=== PATIENT | female | born 1960 | race Caucasian/White ===

== ENCOUNTER 2016-12-22 09:00 | Outpatient (CLI) | payer OTHER | END 2016-12-22 09:01 | disposition home or self-care (01) | DX: E78.5 Hyperlipidemia, unspecified (principal); E11.9 Type 2 diabetes mellitus without complications; I10 Essential (primary) hypertension; R05 Cough; J02.9 Acute pharyngitis, unspecified ==

== ENCOUNTER 2016-12-29 08:00 | Outpatient (CLI) | payer OTHER | END 2016-12-29 08:01 | disposition home or self-care (01) | DX: C91.10 Chronic lymphocytic leukemia of B-cell type not having achieved remission (principal); Z85.038 Personal history of other malignant neoplasm of large intestine ==

== ENCOUNTER 2017-03-10 09:55 | Outpatient (CLI) | payer OTHER | END 2017-03-10 09:56 | disposition home or self-care (01) | DX: E78.5 Hyperlipidemia, unspecified (principal); E11.9 Type 2 diabetes mellitus without complications ==

== ENCOUNTER 2017-03-29 13:01 | Outpatient (CLI) | payer OTHER ==
[2017-03-29] MEDS ORDERED: GADOBUTROL 15 MMOL/15 ML VIAL IVP ONE (13:46)
--- NOTE | 2017-03-29 14:43 | MRI Preliminary Report ---
Exam: MRI Brain W/WO IMPRESSION: 1. Abnormal enhancement involving labyrinthine segment of the right cranial nerve VII. 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 2. Negative MRI of the brain. No acute abnormality. No infarct, mass, hemorrhage, or abnormal enhance ment. Critical result: Findings are discussed with referring physician, Dr. Valencia Fernandez, on 03/29/2017 at 1435 hrs. RADIA The above findings were discussed with Referring by Dr. Grzegorz العراقي at 14:42 hrs on 03/29/17. SITE ID: [id number]
--- NOTE | 2017-03-29 14:46 | MRI Report ---
EXAM: MRI BRAIN WITHOUT AND WITH CONTRAST EXAM DATE: 03/29/2017 01:53 PM. CLINICAL HISTORY: FACIAL DROOP. Right-sided facial droop since 0700 hrs. today. History of colon canc er. COMPARISON: None. TECHNIQUE: Multiplanar, multisequence T1-weighted and fluid-sensitive MR sequences of the brain were performed. Sequences optimized for routine evaluation. Other: None. Without and with IV Contrast: 12 cc Gadavist. FINDINGS: Brain Volume: Normal for age. Parenchyma/Dura: No masses, infarcts, or hemorrhage. No white matter lesions identified. No cortical signal abnormality is seen. No abnormal enhancement. Ventricles/Cisterns: Normal. No hydrocephalus. Orbits: The globes, optic nerve sheath complex, extraocular muscles, and orbital fat are unremarkable . Sella turcica: The pituitary gland, cavernous sinuses, suprasellar cistern, and optic chiasm are unre markable. IAC: Abnormal enhancement of right facial nerve is seen within the internal auditory canal . Abnormal enhancement of the labyrinthine segment is seen. Vasculature: Normal signal flow void is seen in the major arterial structures at the skull base. Basi lar artery is small in caliber. Prominent P-comm is seen bilaterally. The dural sinuses are patent an d enhance normally. Sinuses: No sinusitis evident. Partial opacification is seen involving peripheral left mastoid air ce lls. Bones: The skull is intact. Other: None. IMPRESSION: 1. Abnormal enhancement involving labyrinthine segment of the right cranial nerve VII. 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 2. Negative MRI of the brain. No acute abnormality. No infarct, mass, hemorrhage, or abnormal enhance ment. Critical result: Findings are discussed with referring physician, Dr. Valencia Fernandez, on 03/29/2017 at 1435 hrs. RADIA The above findings were discussed with DrCelia Referring by Dr. Grzegorz العراقي at 14:42 hrs on 03/29/17. Referring Provider Line: [phone] SITE ID: [id number]
== END 2017-03-29 13:02 | disposition home or self-care (01) ==
LOC: DI 13:01
PROVIDERS: ATTEND Family Medicine
DX: R90.89 Other abnormal findings on diagnostic imaging of central nervous system (principal)
CPT/HCPCS: 70553; A9585

== ENCOUNTER 2017-07-19 08:27 | Outpatient (CLI) | payer OTHER ==
[2017-07-19 12:52] LABS: BASOPHILS % (AUTO) 0.1 %; EOSINOPHILS # (AUTO) 0.1 10^3/uL (0.0-0.7); EOSINOPHILS % (AUTO) 0.8 %; HCT - HEMATOCRIT 34.5 % (37.0-47.0); HGB - HEMOGLOBIN 11.4 g/dL (12.0-16.0); LYMPHOCYTES % (AUTO) 64.6 %; MEAN CORPUSCULAR HEMOGLOBIN 27.9 pg (27.0-31.0); MEAN CORPUSCULAR VOLUME 84.7 fL (81.0-99.0); MEAN PLATELET VOLUME 9.7 fL (7.9-10.8); MONOCYTES # (AUTO) 0.7 10^3/uL (0.0-1.0); MONOCYTES % (AUTO) 3.9 %; NEUTROPHILS # (AUTO) 5.2 10^3/uL (1.5-6.6); NEUTROPHILS % (AUTO) 30.6 %; NUCLEATED RED BLOOD CELLS AUTO 0.2 /100WBC; RED BLOOD COUNT 4.08 10^6/uL (4.20-5.40); RED CELL DISTRIBUTION WIDTH 14.8 % (12.0-15.0); UNCORRECTED WHITE BLOOD COUNT 17.1 x10^3/uL; WHITE BLOOD COUNT 17.1 x10^3/uL (4.8-10.8)
[2017-07-19 13:14] LABS: ALBUMIN/GLOBULIN RATIO 1.4 (1.0-2.2); BILIRUBIN,TOTAL 0.5 mg/dL (0.2-1.0); BUN - BLOOD UREA NITROGEN 16 mg/dL (6-20); CALCIUM 8.7 mg/dL (8.5-10.3); CARBON DIOXIDE - CO2 26 mmol/L (21-32); CHLORIDE 102 mmol/L (101-111); CHOL/HDL RATIO 5.5 (<4.4); CHOLESTEROL 191 mg/dL; CREATININE 0.6 mg/dL (0.4-1.0); GFR - MDRD 103 (>89); GLUCOSE 149 mg/dL (70-100); HDL CHOLESTEROL 35 mg/dL; LDL/HDL RATIO 2.8 (<4.4); POTASSIUM 3.9 mmol/L (3.5-5.0); SODIUM 137 mmol/L (135-145); TOTAL PROTEIN 6.6 g/dL (6.7-8.2); TRIGLYCERIDES 297 mg/dL; VLDL CHOLESTEROL 59 mg/dL
[2017-07-19 13:33] LABS: HEMOGLOBIN A1C 0.67 g/dL
[2017-07-19 13:42] LABS: NP AUTO DIFFERENTIAL? NO; NP MAN DIFFERENTIAL? YES; WBC MORPHOLOGY (MULTIPLE) 2+ SMUDGE CELLS (NORMAL)
[2017-07-19 13:43] LABS: LYMPHOCYTES # (AUTO) 11.1 10^3/uL (1.5-3.5)
== END 2017-07-19 08:28 | disposition home or self-care (01) ==
LOC: LAB.WCP 08:27
PROVIDERS: ATTEND Family Medicine
DX: I10 Essential (primary) hypertension (principal); E78.5 Hyperlipidemia, unspecified; E11.9 Type 2 diabetes mellitus without complications
CPT/HCPCS: 36415; 80053; 80061; 83036; 85025

== ENCOUNTER 2017-12-21 09:00 | Outpatient (CLI) | payer OTHER ==
[2017-12-21 12:55] LABS: BASOPHILS % (AUTO) 0.2 %; EOSINOPHILS # (AUTO) 0.2 10^3/uL (0.0-0.7); EOSINOPHILS % (AUTO) 0.8 %; HGB - HEMOGLOBIN 11.8 g/dL (12.0-16.0); LYMPHOCYTES % (AUTO) 67.6 %; MEAN CORPUSCULAR HEMOGLOBIN 27.5 pg (27.0-31.0); MEAN CORPUSCULAR HGB CONC 32.6 g/dL (32.0-36.0); MEAN CORPUSCULAR VOLUME 84.2 fL (81.0-99.0); MEAN PLATELET VOLUME 9.3 fL (7.9-10.8); MONOCYTES # (AUTO) 0.8 10^3/uL (0.0-1.0); MONOCYTES % (AUTO) 3.4 %; NEUTROPHILS # (AUTO) 6.6 10^3/uL (1.5-6.6); PLT - PLATELET COUNT 224 10^3/uL (130-450); RED CELL DISTRIBUTION WIDTH 15.3 % (12.0-15.0); WHITE BLOOD COUNT 23.5 x10^3/uL (4.8-10.8)
[2017-12-21 13:11] LABS: HB2 TOTAL 12.7 g/dL; HEMOGLOBIN A1C 0.79 g/dL; HEMOGLOBIN A1C % 7.8 % (4.6-6.2)
[2017-12-21 13:34] LABS: DIFFERENTIAL COMMENT MANUAL=AUTO DIFF
[2017-12-21 13:35] LABS: LYMPHOCYTES # (AUTO) 15.9 10^3/uL (1.5-3.5)
[2017-12-21 14:57] LABS: ALBUMIN/GLOBULIN RATIO 1.5 (1.0-2.2); ALKALINE PHOSPHATASE 90 IU/L (42-121); ALT ALANINE AMINOTRANSFERASE 25 IU/L (10-60); AST ASPARTATE AMINOTRANSFERASE 23 IU/L (10-42); BILIRUBIN,TOTAL 0.5 mg/dL (0.2-1.0); BUN - BLOOD UREA NITROGEN 16 mg/dL (6-20); CALCIUM 8.7 mg/dL (8.5-10.3); CARBON DIOXIDE - CO2 25 mmol/L (21-32); CHLORIDE 98 mmol/L (101-111); CHOL/HDL RATIO 4.3 (<4.4); CHOLESTEROL 143 mg/dL; CREATININE 0.8 mg/dL (0.4-1.0); GFR - MDRD 74 (>89); GLUCOSE 212 mg/dL (70-100); HDL CHOLESTEROL 33 mg/dL; LDL CHOLESTEROL,CALCULATED 55 mg/dL; LDL/HDL RATIO 1.7 (<4.4); SODIUM 135 mmol/L (135-145); TOTAL PROTEIN 6.7 g/dL (6.7-8.2); VLDL CHOLESTEROL 55 mg/dL
== END 2017-12-21 09:01 | disposition home or self-care (01) ==
LOC: LAB.WCP 09:00
PROVIDERS: ATTEND Family Medicine
DX: Z00.00 Encounter for general adult medical examination without abnormal findings (principal); E78.5 Hyperlipidemia, unspecified; E11.9 Type 2 diabetes mellitus without complications; I10 Essential (primary) hypertension
CPT/HCPCS: 36415; 80053; 80061; 82043; 83036; 83721; 84443; 85025

== ENCOUNTER 2018-03-02 13:52 | Outpatient (CLI) | payer OTHER ==
[2018-03-02 17:48] LABS: BASOPHILS % (AUTO) 0.3 %; EOSINOPHILS % (AUTO) 0.7 %; HGB - HEMOGLOBIN 11.5 g/dL (12.0-16.0); LYMPHOCYTES % (AUTO) 70.2 %; MEAN CORPUSCULAR HEMOGLOBIN 27.2 pg (27.0-31.0); MEAN CORPUSCULAR HGB CONC 32.6 g/dL (32.0-36.0); MEAN CORPUSCULAR VOLUME 83.5 fL (81.0-99.0); MEAN PLATELET VOLUME 9.2 fL (7.9-10.8); MONOCYTES % (AUTO) 2.5 %; NEUTROPHILS % (AUTO) 26.3 %; PLT - PLATELET COUNT 211 10^3/uL (130-450); RED BLOOD COUNT 4.23 10^6/uL (4.20-5.40); RED CELL DISTRIBUTION WIDTH 15.4 % (12.0-15.0); WHITE BLOOD COUNT 19.3 x10^3/uL (4.8-10.8)
[2018-03-02 18:36] LABS: ALBUMIN 4.2 g/dL (3.2-5.5); ALBUMIN/GLOBULIN RATIO 1.6 (1.0-2.2); ALKALINE PHOSPHATASE 90 IU/L (42-121); ALT ALANINE AMINOTRANSFERASE 24 IU/L (10-60); AST ASPARTATE AMINOTRANSFERASE 20 IU/L (10-42); BILIRUBIN,TOTAL 0.8 mg/dL (0.2-1.0); BUN - BLOOD UREA NITROGEN 19 mg/dL (6-20); CALCIUM 8.7 mg/dL (8.5-10.3); CARBON DIOXIDE - CO2 28 mmol/L (21-32); CHLORIDE 96 mmol/L (101-111); CHOL/HDL RATIO 3.5 (<4.4); CHOLESTEROL 111 mg/dL; CREATININE 0.7 mg/dL (0.4-1.0); GFR - MDRD 86 (>89); GLUCOSE 95 mg/dL (70-100); HDL CHOLESTEROL 32 mg/dL; LDL CHOLESTEROL,CALCULATED 42 mg/dL; LDL/HDL RATIO 1.3 (<4.4); SODIUM 134 mmol/L (135-145); TOTAL PROTEIN 6.9 g/dL (6.7-8.2); VLDL CHOLESTEROL 37 mg/dL
[2018-03-02 18:56] LABS: ABNORMAL LYMPHS % (MANUAL) 0 %
[2018-03-02 19:38] LABS: HB2 TOTAL 12.3 g/dL; HEMOGLOBIN A1C 0.7 g/dL; HEMOGLOBIN A1C % 7.4 % (4.6-6.2)
[2018-03-02 21:12] LABS: BAND NEUTROPHILS % (MANUAL) 3 %; EOSINOPHILS # (MANUAL) 0.4 10^3/uL (0-0.7); LYMPHOCYTES # (MANUAL) 12.5 10^3/uL (1.5-3.5); LYMPHOCYTES % (MANUAL) 59 %; MONOCYTES # (MANUAL) 0.8 10^3/uL (0.0-1.0); NEUTROPHILS # (MANUAL) 5.6 10^3/uL (1.5-6.6); NEUTROPHILS % (MANUAL) 26 %
[2018-03-02 21:14] LABS: RBC MORPHOLOGY (MULTIPLE) NORMAL APPEARANCE (NORMAL)
[2018-03-02 21:15] LABS: DIFFERENTIAL COMMENT MANUAL DIFFERENTIAL; PLATELET ESTIMATE, MANUAL NORMAL (130-450,000) (NORMAL); PLATELET MORPHOLOGY NORMAL APPEARANCE (NORMAL)
== END 2018-03-02 13:53 | disposition home or self-care (01) ==
LOC: LAB.F 13:52
PROVIDERS: ATTEND Family Medicine
DX: E78.5 Hyperlipidemia, unspecified (principal); I10 Essential (primary) hypertension; E11.9 Type 2 diabetes mellitus without complications
CPT/HCPCS: 36415; 80053; 80061; 83036; 83721; 85025

== ENCOUNTER 2018-03-22 11:57 | Outpatient (CLI) | payer OTHER | END 2018-03-22 11:58 | disposition critical access hospital (66) | LOC: EMS 11:57 | PROVIDERS: ATTEND Surgery | DX: M79.661 Pain in right lower leg (principal); X50.9XXA Other and unspecified overexertion or strenuous movements or postures, initial encounter; Y93.01 Activity, walking, marching and hiking; Y92.512 Supermarket, store or market as the place of occurrence of the external cause | CPT/HCPCS: A0425; A0429 ==

== ENCOUNTER 2018-03-22 12:16 | Emergency (ER) | payer OTHER ==
[2018-03-22 12:24] VITALS: BP 156/81
--- NOTE | 2018-03-22 13:05 | XRAY Report ---
EXAM: RIGHT ANKLE RADIOGRAPHY EXAM DATE: 03/22/2018 12:45 PM. CLINICAL HISTORY: Twisted rt ankle, c/o ankle pain. COMPARISON: None. TECHNIQUE: 3 views. FINDINGS: Bones: Irregular linear lucency extending to the inferior aspect of the lateral malleolus. Joints: Small joint effusion at the ankle. Soft Tissues: Soft tissue swelling along the lateral aspect of the ankle. IMPRESSION: Minimally displaced fracture at the tip of the lateral malleolus with adjacent soft tissu e swelling and small joint effusion at the ankle. RADIA Referring Provider Line: [phone] SITE ID: [id number]
--- NOTE | 2018-03-22 13:05 | XRAY Preliminary Report ---
Exam: XR ANKLE 3 VIEW RT IMPRESSION: Minimally displaced fracture at the tip of the lateral malleolus with adjacent soft tissu e swelling and small joint effusion at the ankle. RADIA SITE ID: [id number]
--- NOTE | 2018-03-22 13:20 | ED Physician Documentation ---
PD HPI LOWER EXT INJURY - Stated complaint Stated Complaint: GLF - Chief complaint Chief Complaint: Ext Problem - History obtained from History obtained from: Patient - History of Present Illness PD HPI LOW EXT INJURY LOCATION: Right, Ankle Type of injury: Twist Where injury occurred: Other (parking lot) Timing - onset: Today Worsened by: Other (Weightbearing) Associated symptoms: Swelling. No: Weakness, Numbness - Additional information Additional information: The patient is a 57-year-old female who stepped into a pothole in the parking lot, twisting her right ankle. She fell, skinning her left knee on the pavement. She has been unable to bear weight on her right foot since the incident occurred just prior to arrival. She denies any other injuries. Her tetanus status is up-to-date. Review of Systems Skin: reports: Abrasion (s) (Left knee.) Musculoskeletal: reports: Joint pain (Right ankle.). 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, Breast reduction - Present Medications Home Medications: Ambulatory Orders Medication Instructions Recorded Confirmed Budesonide/Formoterol Fumarate 2 inh INH BID 05/12/16 05/12/16 [Symbicort 160-4.5 Mcg Inhaler] Cholecalciferol (Vitamin D3) 1,000 unit PO DAILY 05/12/16 05/12/16 [Vitamin D3] Cyclobenzaprine [Flexeril] 10 mg PO TID PRN 05/12/16 05/12/16 Fluoxetine HCl [Prozac] 60 mg PO DAILY 05/12/16 05/12/16 Fluticasone [Flonase] 1 sprays CJ BID 05/12/16 05/12/16 Guanfacine HCl 2 mg PO DAILY 05/12/16 05/12/16 Insulin Aspart [Novolog] 22 unit SQ TIDWM 05/12/16 05/12/16 Insulin Detemir [Levemir Flextouch] 55 unit SQ QPM 05/12/16 05/12/16 Ipratropium/Albuterol Sulfate 4 gm IH QID PRN 05/12/16 05/12/16 [Combivent Respimat Inhal [place]] Metformin HCl 500 mg PO BIDWM 05/12/16 05/12/16 Methylphenidate HCl [Concerta] 18 mg PO DAILY 05/12/16 05/12/16 Nystatin Cream [Mycostatin Cream] 15 gm TOP BID PRN 05/12/16 05/12/16 Simvastatin 20 mg PO QPM 05/12/16 05/12/16 hydroCHLOROthiazide [Hydrodiuril] 25 mg PO DAILY 05/12/16 05/12/16 HYDROcod/ACETAM 5/325 [[place] 5/325] 1 - 2 ea PO Q6H PRN #20 tablet 03/22/18 - Allergies Allergies/Adverse Reactions: Allergies Allergy/AdvReac Type Severity Reaction Status Date / Time No Known Drug Allergies Allergy Verified 03/22/18 12:24 - Social History Smoking Status: Former smoker PD ED PE NORMAL - Vitals Vital signs reviewed: Yes (Initially hypertensive.) - General General: Alert and oriented X 3, Well developed/nourished, Other (Overweight.) - HEENT HEENT: Atraumatic - Neck Neck: No bony TTP - Respiratory Respiratory: No respiratory distress - Back Back: No spinal TTP - Derm Derm: No rash - Extremities Extremities: No calf tenderness / cord, Other (There is tenderness to palpation over the lateral malleolus of the right ankle. No tenderness at the fifth metatarsal base, the medial malleolus, or the proximal fibula. There is superficial abrasion at the infrapatellar aspect of the left knee. She has full range of motion of the knee, without tenderness. Distal neurovascular is intact.) - Neuro Neuro: Alert and oriented X 3, No motor deficit, No sensory deficit Results - Vitals Vitals: Oxygen O2 Source Room air - Rads (name of study) right ankle Radiology: Prelim report reviewed, EMP read contemporaneously, See rad report ( Minimally displaced fracture at the tip of the lateral malleolus with adjacent soft tissue swelling and small joint effusion at the ankle.) Procedures - Splint (location) right ankle Splint applied by: Tech Type of splint: Other (Walking cast boot.) Other: Patient tolerated well, No complications, Crutches provided PD MEDICAL DECISION MAKING - ED course Complexity details: reviewed results, re-evaluated patient, considered differential, d/w patient, d/w family ED course: The patient's presentation is significant for a minimally displaced chip fracture at the tip of the right lateral malleolus. Treatment in the emergency department included administration of a walking cast boot. Crutches were dispensed. Ibuprofen 800 mg is administered orally. In addition, the abrasion of the left knee was cleaned, and antibiotic ointment and wound dressing applied. Imaging study of the left knee was not clinically indicated. I discussed with the patient and her the expected course of injury, symptomatic treatment and outpatient follow-up, as well as potentially worrisome signs or symptoms that should prompt reevaluation in the emergency department. Departure - Departure Disposition: 01 Home, Self Care Clinical Impression: Fracture of fibula, distal, closed Qualifiers: Encounter type: initial encounter Fracture morphology: other fracture Laterality: right Qualified Code(s): S82.831A - Other fracture of upper and lower end of right fibula, initial encounter for closed fracture Condition: Stable Instructions: ED Fx Ankle Lateral Malleolus, ED Boot Aircast Walker Follow-Up: Valencia Frenandez MD [Primary Care Provider] - Prescriptions: HYDROcod/ACETAM 5/325 [[place] 5/325] 1 - 2 ea PO Q6H PRN #20 tablet PRN Reason: Pain Comments: Keep your right leg elevated as much of the time as possible. Apply ice pack to your ankle intermittently for the next 3 or 4 days. Use the walking boot for stability when walking. You can use ibuprofen, up to 800 mg 3 times daily for its anti-inflammatory effect. You can use Vicodin as prescribed if needed for pain. Follow up with your primary physician within 1-2 weeks. Call to schedule appointment. Return to the emergency department if you develop markedly increasing pain or swelling, or otherwise worsening symptoms. Forms: Activity restrictions Discharge Date/Time: 03/22/18 14:14
[2018-03-22] MEDS ORDERED: IBUPROFEN 800 MG TABLET PO STA (13:21)
[2018-03-22] MEDS ORDERED: BACITRACIN OINT TOP STA (13:37)
== END 2018-03-22 14:14 | disposition home or self-care (01) ==
LOC: EDUNIT# → ED 12:16
DX: S82.64XA Nondisplaced fracture of lateral malleolus of right fibula, initial encounter for closed fracture (principal); S80.212A Abrasion, left knee, initial encounter; I10 Essential (primary) hypertension; E11.9 Type 2 diabetes mellitus without complications; Z79.4 Long term (current) use of insulin; Z87.891 Personal history of nicotine dependence; W01.0XXA Fall on same level from slipping, tripping and stumbling without subsequent striking against object, initial encounter; Y92.481 Parking lot as the place of occurrence of the external cause; X50.1XXA Overexertion from prolonged static or awkward postures, initial encounter
CPT/HCPCS: 73610; 99283; A9270

== ENCOUNTER 2018-05-08 11:05 | Outpatient (CLI) | payer OTHER ==
--- NOTE | 2018-05-08 13:04 | Ultrasound Report ---
Procedure Date: 05/08/2018 Accession Number: [id number] / [id number] Procedure: US - Ext Limited Non Vascular CPT Code: FULL RESULT: EXAM: Ext Limited Non Vascular DATE: 05/08/2018 11:54 AM CLINICAL HISTORY: LOCAL MASS TO UPPER R ARM TECHNIQUE: Real-time scanning of the palpable abnormality identified by the patient, with claim service representative static images obtained. COMPARISON: None FINDINGS: At the site of the palpable abnormality, there is a 4.0 x 2.9 x 1.5 cm lipoma. Additional, smaller lipomas are noted in the surrounding fat, measuring up to 8 mm in diameter. No sonographically suspicious lesion is identified. 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
== END 2018-05-08 11:06 | disposition home or self-care (01) ==
LOC: DI 11:05
PROVIDERS: ATTEND Family Medicine
DX: D17.21 Benign lipomatous neoplasm of skin and subcutaneous tissue of right arm (principal)
CPT/HCPCS: 76882

== ENCOUNTER 2018-07-23 09:00 | Outpatient (CLI) | payer OTHER ==
[2018-07-23 13:01] LABS: BASOPHILS # (AUTO) 0.1 10^3/uL (0.0-0.1); BASOPHILS % (AUTO) 0.3 %; EOSINOPHILS # (AUTO) 0.2 10^3/uL (0.0-0.7); EOSINOPHILS % (AUTO) 0.8 %; HGB - HEMOGLOBIN 12.2 g/dL (12.0-16.0); LYMPHOCYTES # (AUTO) 15.4 10^3/uL (1.5-3.5); LYMPHOCYTES % (AUTO) 68.5 %; MEAN CORPUSCULAR HEMOGLOBIN 28.1 pg (27.0-31.0); MEAN CORPUSCULAR HGB CONC 33.2 g/dL (32.0-36.0); MEAN CORPUSCULAR VOLUME 84.6 fL (81.0-99.0); MEAN PLATELET VOLUME 9.8 fL (7.9-10.8); MONOCYTES # (AUTO) 0.6 10^3/uL (0.0-1.0); MONOCYTES % (AUTO) 2.7 %; NEUTROPHILS # (AUTO) 6.2 10^3/uL (1.5-6.6); NEUTROPHILS % (AUTO) 27.7 %; PLT - PLATELET COUNT 205 10^3/uL (130-450); RED BLOOD COUNT 4.35 10^6/uL (4.20-5.40); RED CELL DISTRIBUTION WIDTH 15.1 % (12.0-15.0); WHITE BLOOD COUNT 22.4 x10^3/uL (4.8-10.8)
[2018-07-23 13:26] LABS: ALBUMIN 4.1 g/dL (3.2-5.5); ALBUMIN/GLOBULIN RATIO 1.5 (1.0-2.2); ALKALINE PHOSPHATASE 90 IU/L (42-121); ALT ALANINE AMINOTRANSFERASE 26 IU/L (10-60); AST ASPARTATE AMINOTRANSFERASE 24 IU/L (10-42); BILIRUBIN,TOTAL 0.7 mg/dL (0.2-1.0); BUN - BLOOD UREA NITROGEN 17 mg/dL (6-20); CALCIUM 9.1 mg/dL (8.5-10.3); CARBON DIOXIDE - CO2 28 mmol/L (21-32); CHLORIDE 101 mmol/L (101-111); CHOL/HDL RATIO 3.3 (<4.4); CHOLESTEROL 130 mg/dL; CREATININE 0.7 mg/dL (0.4-1.0); GFR - MDRD 86 (>89); GLUCOSE 198 mg/dL (70-100); HDL CHOLESTEROL 39 mg/dL; LDL CHOLESTEROL,CALCULATED 54 mg/dL; LDL/HDL RATIO 1.4 (<4.4); SODIUM 137 mmol/L (135-145); TOTAL PROTEIN 6.8 g/dL (6.7-8.2); VLDL CHOLESTEROL 37 mg/dL
[2018-07-23 13:33] LABS: DIFFERENTIAL COMMENT MANUAL=AUTO DIFF
[2018-07-23 13:35] LABS: HB2 TOTAL 12.6 g/dL; HEMOGLOBIN A1C 0.84 g/dL; HEMOGLOBIN A1C % 8.3 % (4.6-6.2)
== END 2018-07-23 09:01 | disposition home or self-care (01) ==
LOC: LAB.WCP 09:00
PROVIDERS: ATTEND Internal Medicine Hematology & Oncology
DX: C91.10 Chronic lymphocytic leukemia of B-cell type not having achieved remission (principal); E78.5 Hyperlipidemia, unspecified; I10 Essential (primary) hypertension; E11.9 Type 2 diabetes mellitus without complications
CPT/HCPCS: 36415; 80053; 80061; 82784; 83036; 83615; 83721; 85025

== ENCOUNTER 2018-08-21 10:41 | Outpatient (CLI) | payer OTHER | END 2018-08-21 10:42 | disposition home or self-care (01) | LOC: SC 10:41 | PROVIDERS: ATTEND Internal Medicine Pulmonary Disease | DX: G47.33 Obstructive sleep apnea (adult) (pediatric) (principal) | CPT/HCPCS: 99203; 99212 ==

== ENCOUNTER 2018-11-18 15:15 | Outpatient (CLI) | payer OTHER | END 2018-11-18 15:16 | disposition EMS.NT | LOC: EMS 15:15 | PROVIDERS: ATTEND Surgery | DX: R41.0 Disorientation, unspecified (principal) ==

== ENCOUNTER 2018-11-27 08:00 | Outpatient (CLI) | payer OTHER ==
[2018-11-27 20:02] LABS: ALBUMIN 3.9 g/dL (3.2-5.5); ALBUMIN/GLOBULIN RATIO 1.3 (1.0-2.2); BILIRUBIN,TOTAL 0.7 mg/dL (0.2-1.0); CREATININE 0.7 mg/dL (0.4-1.0); TOTAL PROTEIN 6.9 g/dL (6.7-8.2)
[2018-11-27 20:30] LABS: HB2 TOTAL 11.7 g/dL; HEMOGLOBIN A1C 0.73 g/dL; HEMOGLOBIN A1C % 7.9 % (4.6-6.2)
== END 2018-11-27 23:59 | disposition home or self-care (01) ==
LOC: LAB.WCP 08:00
PROVIDERS: ATTEND Family Medicine
DX: E11.9 Type 2 diabetes mellitus without complications (principal); I10 Essential (primary) hypertension
CPT/HCPCS: 36415; 80053; 82043; 83036

== ENCOUNTER 2020-06-08 08:00 | Outpatient (CLI) | payer OTHER ==
[2020-06-08 12:16] LABS: BASOPHILS # (AUTO) 0.1 10^3/uL (0.0-0.1); BASOPHILS % (AUTO) 0.3 %; EOSINOPHILS # (AUTO) 0.2 10^3/uL (0.0-0.7); EOSINOPHILS % (AUTO) 0.5 %; HGB - HEMOGLOBIN 12.8 g/dL (12.0-16.0); LYMPHOCYTES # (AUTO) 21.9 10^3/uL (1.5-3.5); LYMPHOCYTES % (AUTO) 78.8 %; MEAN CORPUSCULAR HEMOGLOBIN 28.2 pg (27.0-31.0); MEAN CORPUSCULAR HGB CONC 32.3 g/dL (32.0-36.0); MEAN CORPUSCULAR VOLUME 87.2 fL (81.0-99.0); MEAN PLATELET VOLUME 11.8 fL (7.9-10.8); MONOCYTES # (AUTO) 1.2 10^3/uL (0.0-1.0); MONOCYTES % (AUTO) 4.4 %; NEUTROPHILS # (AUTO) 4.4 10^3/uL (1.5-6.6); NEUTROPHILS % (AUTO) 15.6 %; PLT - PLATELET COUNT 213 10^3/uL (130-450); RED BLOOD COUNT 4.54 10^6/uL (4.20-5.40); RED CELL DISTRIBUTION WIDTH 14.3 % (12.0-15.0); WHITE BLOOD COUNT 27.8 x10^3/uL (4.8-10.8)
[2020-06-08 13:07] LABS: ALBUMIN/GLOBULIN RATIO 1.4 (1.0-2.2); ALKALINE PHOSPHATASE 120 IU/L (42-121); ALT ALANINE AMINOTRANSFERASE 20 IU/L (10-60); AST ASPARTATE AMINOTRANSFERASE 13 IU/L (10-42); BILIRUBIN,TOTAL 0.7 mg/dL (0.2-1.0); BUN - BLOOD UREA NITROGEN 13 mg/dL (6-20); CARBON DIOXIDE - CO2 29 mmol/L (21-32); CHLORIDE 97 mmol/L (101-111); CHOL/HDL RATIO 6.2 (<4.4); CHOLESTEROL 168 mg/dL; CREATININE 0.7 mg/dL (0.4-1.0); GLUCOSE 419 mg/dL (70-100); HDL CHOLESTEROL 27 mg/dL; SODIUM 134 mmol/L (135-145); TOTAL PROTEIN 6.8 g/dL (6.7-8.2)
[2020-06-08 13:28] LABS: LDL CHOLESTEROL,DIRECT 44 mg/dL; LDLD/HDL RATIO 1.6 (<4.4)
[2020-06-08 14:57] LABS: HB2 TOTAL 13.7 g/dL; HEMOGLOBIN A1C 1.7 g/dL; HEMOGLOBIN A1C % 13.5 % (4.6-6.2)
== END 2020-06-08 23:59 | disposition home or self-care (01) ==
LOC: LAB.WCP 08:00
PROVIDERS: ATTEND Physician Assistant
DX: E11.9 Type 2 diabetes mellitus without complications (principal); E78.5 Hyperlipidemia, unspecified
CPT/HCPCS: 36415; 80053; 80061; 83036; 83721; 85025

== ENCOUNTER 2020-08-08 07:00 | Outpatient (CLI) | payer OTHER | END 2020-08-08 23:59 | disposition home or self-care (01) | LOC: LAB.R 07:00 | PROVIDERS: ATTEND Emergency Medicine | DX: L03.012 Cellulitis of left finger (principal) | CPT/HCPCS: 87070; 87181; 87205 ==

== ENCOUNTER 2020-10-01 18:26 | Outpatient (CLI) | payer OTHER | END 2020-10-01 18:27 | disposition EMS.NT | LOC: EMS 18:26 | PROVIDERS: ATTEND Surgery | DX: T22.041A Burn of unspecified degree of right axilla, initial encounter (principal); X06.2XXA Exposure to ignition of other clothing and apparel, initial encounter; Y93.G3 Activity, cooking and baking; Y92.000 Kitchen of unspecified non-institutional (private) residence as the place of occurrence of the external cause ==

== ENCOUNTER 2021-02-26 08:00 | Outpatient (CLI) | payer OTHER | END 2021-02-26 23:59 | disposition home or self-care (01) | LOC: LAB.R 08:00 | PROVIDERS: ATTEND Nurse Practitioner | DX: L02.91 Cutaneous abscess, unspecified (principal) | CPT/HCPCS: 87070; 87077; 87205 ==

== ENCOUNTER 2021-07-04 09:35 | Outpatient (CLI) | payer OTHER ==
[2021-07-04 09:56] LABS: BASOPHILS % (AUTO) 0.3 %; EOSINOPHILS % (AUTO) 0.5 %; HCT - HEMATOCRIT 39.6 % (37.0-47.0); HGB - HEMOGLOBIN 12.7 g/dL (12.0-16.0); LYMPHOCYTES % (AUTO) 80.9 %; MEAN CORPUSCULAR HEMOGLOBIN 28.1 pg (27.0-31.0); MEAN CORPUSCULAR HGB CONC 32.1 g/dL (32.0-36.0); MEAN CORPUSCULAR VOLUME 87.6 fL (81.0-99.0); NEUTROPHILS % (AUTO) 15.9 %; PLT - PLATELET COUNT 201 10^3/uL (130-450); RED BLOOD COUNT 4.52 10^6/uL (4.20-5.40); RED CELL DISTRIBUTION WIDTH 13.7 % (12.0-15.0); WHITE BLOOD COUNT 29.1 x10^3/uL (4.8-10.8)
[2021-07-04 10:07] LABS: CREATININE,URINE 95.9 mg/dL; MICROALBUM/CREATININE RATIO,UR 10.4 ug/mg (<30.0)
[2021-07-04 10:13] LABS: ABNORMAL LYMPHS % (MANUAL) 0 %; BAND NEUTROPHILS % (MANUAL) 0 %
[2021-07-04 10:15] LABS: ALBUMIN 4.2 g/dL (3.2-5.5); ALBUMIN/GLOBULIN RATIO 1.4 (1.0-2.2); ALKALINE PHOSPHATASE 112 IU/L (42-121); ALT ALANINE AMINOTRANSFERASE 22 IU/L (10-60); AST ASPARTATE AMINOTRANSFERASE 15 IU/L (10-42); BILIRUBIN,TOTAL 0.9 mg/dL (0.2-1.0); BUN - BLOOD UREA NITROGEN 14 mg/dL (6-20); CALCIUM 9.1 mg/dL (8.5-10.3); CARBON DIOXIDE - CO2 27 mmol/L (21-32); CHLORIDE 99 mmol/L (101-111); CHOL/HDL RATIO 6.8 (<4.4); CHOLESTEROL 238 mg/dL; CREATININE 0.6 mg/dL (0.4-1.0); GFR - MDRD 101 (>89); GLUCOSE 354 mg/dL (70-100); HDL CHOLESTEROL 35 mg/dL; POTASSIUM 4.4 mmol/L (3.5-5.0); SODIUM 136 mmol/L (135-145); TOTAL PROTEIN 7.1 g/dL (6.7-8.2); TRIGLYCERIDES 737 mg/dL
[2021-07-04 10:22] LABS: EOSINOPHILS # (MANUAL) 0.3 10^3/uL (0-0.7); LYMPHOCYTES # (MANUAL) 22.1 10^3/uL (1.5-3.5); LYMPHOCYTES % (MANUAL) 76 %; MONOCYTES # (MANUAL) 1.2 10^3/uL (0.0-1.0); NEUTROPHILS # (MANUAL) 5.5 10^3/uL (1.5-6.6); PLATELET ESTIMATE, MANUAL NORMAL (130-450,000) (NORMAL); PLATELET MORPHOLOGY NORMAL APPEARANCE (NORMAL); RBC MORPHOLOGY (MULTIPLE) NORMAL APPEARANCE (NORMAL)
[2021-07-04 10:23] LABS: DIFFERENTIAL COMMENT MANUAL DIFFERENTIAL; SLIDE SENT FOR PATH REVIEW? Indicated; WBC MORPHOLOGY (MULTIPLE) 3+ SMUDGE CELLS (NORMAL)
[2021-07-04 10:26] LABS: THYROID STIMULATING HORMONE 7.24 uIU/mL (0.34-5.60)
[2021-07-04 11:00] LABS: LDL CHOLESTEROL,DIRECT 55 mg/dL; LDLD/HDL RATIO 1.6 (<4.4)
[2021-07-04 11:04] LABS: FREE T4 (FREE THYROXINE) 1.05 ng/dL (0.58-1.64)
[2021-07-04 11:15] LABS: ESTIMATED AVERAGE GLUCOSE 289 mg/dL (70-100); HEMOGLOBIN A1c% 11.7 % (4.27-6.07)
[2021-07-07 15:08] LABS: PATHOLOGIST SLIDE COMMENTS SEE SEPARATE REPORT
== END 2021-07-04 09:36 | disposition home or self-care (01) ==
LOC: LAB 09:35
PROVIDERS: ATTEND Internal Medicine
DX: I10 Essential (primary) hypertension (principal); R16.1 Splenomegaly, not elsewhere classified; R42 Dizziness and giddiness; E11.9 Type 2 diabetes mellitus without complications; E78.5 Hyperlipidemia, unspecified; F32.9 Major depressive disorder, single episode, unspecified
CPT/HCPCS: 36415; 80053; 80061; 82043; 82570; 83036; 83721; 84439; 84443; 85025

== ENCOUNTER 2021-08-16 16:18 | Outpatient (CLI) | payer OTHER | END 2021-08-16 16:19 | disposition home or self-care (01) | LOC: COV 16:18 | PROVIDERS: ATTEND Family Medicine | DX: Z20.822 Contact with and (suspected) exposure to COVID-19 (principal) ==

== ENCOUNTER 2021-11-20 10:21 | Outpatient (CLI) | payer OTHER ==
[2021-11-20 10:50] LABS: CREATININE,URINE 93.4 mg/dL; MICROALBUM/CREATININE RATIO,UR 23.6 ug/mg (<30.0); MICROALBUMIN,URINE 2.2 mg/dL (0-300.0)
[2021-11-20 11:18] LABS: THYROID STIMULATING HORMONE 5.22 uIU/mL (0.34-5.60)
[2021-11-20 11:19] LABS: BUN - BLOOD UREA NITROGEN 12 mg/dL (6-20); CALCIUM 9.2 mg/dL (8.5-10.3); CARBON DIOXIDE - CO2 25 mmol/L (21-32); CHLORIDE 100 mmol/L (101-111); CHOL/HDL RATIO 5.4 (<4.4); CHOLESTEROL 207 mg/dL; CREATININE 0.7 mg/dL (0.4-1.0); GFR - MDRD 85 (>89); GLUCOSE 242 mg/dL (70-100); HDL CHOLESTEROL 38 mg/dL; LDL CHOLESTEROL,CALCULATED 109 mg/dL; LDL/HDL RATIO 2.9 (<4.4); POTASSIUM 4.2 mmol/L (3.5-5.0); SODIUM 136 mmol/L (135-145); TRIGLYCERIDES 299 mg/dL; VLDL CHOLESTEROL 60 mg/dL
[2021-11-20 11:20] LABS: FREE T4 (FREE THYROXINE) 0.98 ng/dL (0.58-1.64)
[2021-11-20 20:58] LABS: ESTIMATED AVERAGE GLUCOSE 283 mg/dL (70-100); HEMOGLOBIN A1c% 11.5 % (4.27-6.07)
== END 2021-11-20 10:22 | disposition home or self-care (01) ==
LOC: LAB 10:21
PROVIDERS: ATTEND Internal Medicine
DX: R94.6 Abnormal results of thyroid function studies (principal); E11.42 Type 2 diabetes mellitus with diabetic polyneuropathy
CPT/HCPCS: 36415; 80048; 80061; 82043; 82570; 83036; 83721; 84439; 84443

== ENCOUNTER 2021-11-24 16:30 | Outpatient (CLI) | payer OTHER ==
--- NOTE | 2021-12-03 14:02 | XRAY Report ---
PROCEDURE: Chest 2 View X-Ray INDICATIONS: COVID-19 CORONAVIRUS PNEUMONIA TECHNIQUE: 2 view(s) of the chest. COMPARISON: Plain films dated 05/22/2018. FINDINGS: Surgical changes and devices: None. Lungs and pleura: No pleural effusions or pneumothorax. Mild diffuse reticulonodular pulmonary opaci ty. Mediastinum: Mediastinal contours are normal. Heart size is normal. Bones and chest wall: No suspicious bony abnormalities. Soft tissues appear unremarkable. IMPRESSION: Mild atypical pneumonia. Reviewed by: Quan Beach MD on 11/24/2021 4:59 PM PST Approved by: Quan Beach MD on 11/24/2021 4:59 PM PST Station ID: [id number]
== END 2021-11-24 16:31 | disposition home or self-care (01) ==
LOC: DI 16:30
PROVIDERS: ATTEND Internal Medicine
DX: U07.1 COVID-19 (principal); J12.82 Pneumonia due to coronavirus disease 2019

== ENCOUNTER 2021-12-31 16:40 | Outpatient (CLI) | payer OTHER ==
--- NOTE | 2021-12-31 17:26 | XRAY Report ---
PROCEDURE: Foot 3 View RT INDICATIONS: RIGHT FOOT PAIN TECHNIQUE: 3 views of the foot were acquired. COMPARISON: None FINDINGS: Bones: No fractures or dislocations. No suspicious bony lesions. Plantar calcaneal bone spur. Soft tissues: No tibiotalar joint effusion. Achilles tendon appears normal. IMPRESSION: Calcaneal bone spur. Reviewed by: Yessy Diaz MD, PhD on 12/31/2021 5:25 PM PST Approved by: Yessy Diaz MD, PhD on 12/31/2021 5:25 PM PST Station ID: [id number]
== END 2021-12-31 16:41 | disposition home or self-care (01) ==
LOC: DI 16:40
PROVIDERS: ATTEND Internal Medicine
DX: M77.31 Calcaneal spur, right foot (principal)

== ENCOUNTER 2022-05-31 09:00 | Outpatient (CLI) | payer OTHER ==
[2022-05-31 09:40] LABS: BUN - BLOOD UREA NITROGEN 10 mg/dL (6-20); CALCIUM 9.3 mg/dL (8.5-10.3); CARBON DIOXIDE - CO2 25 mmol/L (21-32); CHLORIDE 101 mmol/L (101-111); CHOL/HDL RATIO 3.7 (<4.4); CHOLESTEROL 125 mg/dL; CREATININE 0.6 mg/dL (0.4-1.0); GFR - MDRD 101 (>89); GLUCOSE 252 mg/dL (70-100); HDL CHOLESTEROL 34 mg/dL; LDL CHOLESTEROL,CALCULATED 45 mg/dL; LDL/HDL RATIO 1.3 (<4.4); POTASSIUM 4.5 mmol/L (3.5-5.0); SODIUM 136 mmol/L (135-145); TRIGLYCERIDES 228 mg/dL; VLDL CHOLESTEROL 46 mg/dL
[2022-05-31 09:50] LABS: THYROID STIMULATING HORMONE 7.31 uIU/mL (0.34-5.60)
[2022-05-31 10:55] LABS: FREE T4 (FREE THYROXINE) 0.85 ng/dL (0.58-1.64)
[2022-05-31 12:27] LABS: ESTIMATED AVERAGE GLUCOSE 306 mg/dL (70-100); HEMOGLOBIN A1c% 12.3 % (4.27-6.07)
== END 2022-05-31 09:01 | disposition home or self-care (01) ==
LOC: LAB 09:00
PROVIDERS: ATTEND Internal Medicine
DX: E11.42 Type 2 diabetes mellitus with diabetic polyneuropathy (principal); E78.5 Hyperlipidemia, unspecified; R94.6 Abnormal results of thyroid function studies
CPT/HCPCS: 36415; 80048; 80061; 83036; 83721; 84439; 84443

== ENCOUNTER 2022-10-03 09:07 | Outpatient (CLI) | payer OTHER ==
[2022-10-03 09:30] LABS: BASOPHILS % (AUTO) 0.3 %; EOSINOPHILS % (AUTO) 0.5 %; HCT - HEMATOCRIT 39.4 % (37.0-47.0); HGB - HEMOGLOBIN 12.9 g/dL (12.0-16.0); LYMPHOCYTES % (AUTO) 81.5 %; MEAN CORPUSCULAR HEMOGLOBIN 28.4 pg (27.0-31.0); MEAN CORPUSCULAR HGB CONC 32.7 g/dL (32.0-36.0); MEAN CORPUSCULAR VOLUME 86.8 fL (81.0-99.0); MONOCYTES % (AUTO) 2.7 %; NEUTROPHILS % (AUTO) 14.8 %; PLT - PLATELET COUNT 227 10^3/uL (130-450); RED BLOOD COUNT 4.54 10^6/uL (4.20-5.40); RED CELL DISTRIBUTION WIDTH 13.7 % (12.0-15.0); WHITE BLOOD COUNT 27.5 x10^3/uL (4.8-10.8)
[2022-10-03 09:33] LABS: ABNORMAL LYMPHS % (MANUAL) 0 %; BAND NEUTROPHILS % (MANUAL) 0 %
[2022-10-03 10:06] LABS: CREATININE,URINE 50.7 mg/dL; MICROALBUM/CREATININE RATIO,UR 5.9 ug/mg (<30.0); MICROALBUMIN,URINE 0.3 mg/dL (0-300.0)
[2022-10-03 10:07] LABS: EOSINOPHILS # (MANUAL) 0.3 10^3/uL (0-0.7); LYMPHOCYTES # (MANUAL) 17.1 10^3/uL (1.5-3.5); LYMPHOCYTES % (MANUAL) 62 %; MONOCYTES # (MANUAL) 1.9 10^3/uL (0.0-1.0); NEUTROPHILS # (MANUAL) 7.7 10^3/uL (1.5-6.6); PLASMA CELLS % (MANUAL) 2 %
[2022-10-03 10:08] LABS: PLATELET ESTIMATE, MANUAL NORMAL (130-450,000) (NORMAL); PLATELET MORPHOLOGY NORMAL APPEARANCE (NORMAL); RBC MORPHOLOGY (MULTIPLE) NORMAL APPEARANCE (NORMAL); THYROID STIMULATING HORMONE 8.64 uIU/mL (0.34-5.60)
[2022-10-03 10:09] LABS: WBC MORPHOLOGY (MULTIPLE) 4+ SMUDGE CELLS (NORMAL)
[2022-10-03 10:10] LABS: DIFFERENTIAL COMMENT MANUAL DIFFERENTIAL
[2022-10-03 10:41] LABS: ALBUMIN 3.6 g/dL (3.2-5.5); ALBUMIN/GLOBULIN RATIO 1.2 (1.0-2.2); ALKALINE PHOSPHATASE 108 IU/L (42-121); ALT ALANINE AMINOTRANSFERASE 24 IU/L (10-60); AST ASPARTATE AMINOTRANSFERASE 20 IU/L (10-42); BILIRUBIN,TOTAL 0.4 mg/dL (0.2-1.0); BUN - BLOOD UREA NITROGEN 16 mg/dL (6-20); CALCIUM 9.1 mg/dL (8.5-10.3); CARBON DIOXIDE - CO2 26 mmol/L (21-32); CHLORIDE 96 mmol/L (101-111); CHOL/HDL RATIO 8.7 (<4.4); CHOLESTEROL 297 mg/dL; CREATININE 0.7 mg/dL (0.4-1.0); GFR - MDRD 85 (>89); GLUCOSE 293 mg/dL (70-100); HDL CHOLESTEROL 34 mg/dL; POTASSIUM 4.4 mmol/L (3.5-5.0); SODIUM 132 mmol/L (135-145); TOTAL PROTEIN 6.5 g/dL (6.7-8.2); TRIGLYCERIDES 1192 mg/dL
[2022-10-03 11:03] LABS: FREE T4 (FREE THYROXINE) 0.85 ng/dL (0.58-1.64)
[2022-10-03 11:08] LABS: LDL CHOLESTEROL,DIRECT 64 mg/dL; LDLD/HDL RATIO 1.9 (<4.4)
[2022-10-03 11:30] LABS: ESTIMATED AVERAGE GLUCOSE 309 mg/dL (70-100); HEMOGLOBIN A1c% 12.4 % (4.27-6.07)
== END 2022-10-03 09:08 | disposition home or self-care (01) ==
LOC: LAB 09:07
PROVIDERS: ATTEND Internal Medicine
DX: C19 Malignant neoplasm of rectosigmoid junction (principal); E11.42 Type 2 diabetes mellitus with diabetic polyneuropathy; R94.6 Abnormal results of thyroid function studies
CPT/HCPCS: 36415; 80053; 80061; 82043; 82570; 83036; 83721; 84439; 84443; 85025

== ENCOUNTER 2022-10-06 14:20 | Outpatient (CLI) | payer OTHER ==
--- NOTE | 2022-10-06 15:43 | XRAY Report ---
PROCEDURE: Chest 2 View X-Ray INDICATIONS: ACUTE BRONCHITIS TECHNIQUE: 2 views of the chest were acquired. COMPARISON: 11/24/2021 FINDINGS: Surgical changes and devices: None. Lungs and pleura: No pleural effusions or pneumothorax. Lungs are clear. Mediastinum: Mediastinal contours are normal. Heart size is normal. Bones and chest wall: No suspicious bony abnormalities. Soft tissues appear unremarkable. IMPRESSION: No acute cardiopulmonary process demonstrated radiographically. Reviewed by: James Avila MD on 10/06/2022 3:42 PM PST Approved by: James Avila MD on 10/06/2022 3:42 PM PST Station ID: [id number]
== END 2022-10-06 14:21 | disposition home or self-care (01) ==
LOC: DI 14:20
PROVIDERS: ATTEND Internal Medicine
DX: J20.9 Acute bronchitis, unspecified (principal)

== ENCOUNTER 2024-01-01 14:24 | Outpatient (CLI) | payer OTHER ==
--- NOTE | 2024-01-01 16:51 | XRAY Report ---
PROCEDURE: Shoulder 2+V RT INDICATIONS: BICEPS TENDINITIS OF RIGHT SHOULDER TECHNIQUE: 2 views of the shoulder were acquired. COMPARISON: None. FINDINGS: Bones: No fractures or dislocations. Soft tissues: No suspicious soft tissue calcifications. The visualized lungs are within normal limi ts. IMPRESSION: No acute bony abnormality seen: 2 views right shoulder. Reviewed by: Cristian Brown MD on 01/01/2024 4:49 PM PST Approved by: Cristian Brown MD on 01/01/2024 4:49 PM PST Station ID: [id number]
== END 2024-01-01 23:59 | disposition home or self-care (01) ==
LOC: DI.N 14:24
PROVIDERS: ATTEND Physician Assistant
DX: M75.21 Bicipital tendinitis, right shoulder (principal)

== ENCOUNTER 2024-04-27 14:40 | Outpatient (CLI) | payer OTHER ==
--- NOTE | 2024-04-27 17:20 | XRAY Report ---
PROCEDURE: Chest 2V INDICATIONS: ACUTE COUGH TECHNIQUE: 2 views of the chest were acquired. COMPARISON: 2 views of the chest dated 10/06/2022 FINDINGS: Surgical changes and devices: None. Lungs and pleura: No pleural effusions or pneumothorax. Lungs are clear. Mediastinum: Mediastinal contours appear normal. Heart size is normal. Bones and chest wall: No suspicious bony lesions. Overlying soft tissues appear unremarkable. IMPRESSION: No acute cardiopulmonary process. Reviewed by: Jimena Forrester MD on 04/27/2024 5:18 PM PDT Approved by: Jimena Forrester MD on 04/27/2024 5:18 PM PDT Station ID: [id number]
== END 2024-04-27 14:41 | disposition home or self-care (01) ==
LOC: DI 14:40
PROVIDERS: ATTEND Physician Assistant Medical
DX: R05.1 Acute cough (principal)

== ENCOUNTER 2024-05-03 07:17 | Outpatient (CLI) | payer OTHER ==
[2024-05-03 11:52] LABS: BASOPHILS % (AUTO) 0.2 %; EOSINOPHILS % (AUTO) 0.7 %; HCT - HEMATOCRIT 41.7 % (37.0-47.0); HGB - HEMOGLOBIN 12.9 g/dL (12.0-16.0); LYMPHOCYTES % (AUTO) 76.6 %; MEAN CORPUSCULAR HEMOGLOBIN 27.5 pg (27.0-31.0); MEAN CORPUSCULAR HGB CONC 30.9 g/dL (32.0-36.0); MEAN CORPUSCULAR VOLUME 88.9 fL (81.0-99.0); MEAN PLATELET VOLUME 11.4 fL (7.9-10.8); MONOCYTES % (AUTO) 2.4 %; NEUTROPHILS % (AUTO) 19.8 %; PLT - PLATELET COUNT 225 10^3/uL (130-450); RED BLOOD COUNT 4.69 10^6/uL (4.20-5.40); RED CELL DISTRIBUTION WIDTH 14.2 % (12.0-15.0); WHITE BLOOD COUNT 30.7 x10^3/uL (4.8-10.8)
[2024-05-03 11:56] LABS: ABNORMAL LYMPHS % (MANUAL) 0 %
[2024-05-03 12:19] LABS: THYROID STIMULATING HORMONE 5.38 uIU/mL (0.34-5.60)
[2024-05-03 12:21] LABS: BAND NEUTROPHILS % (MANUAL) 2 %; EOSINOPHILS # (MANUAL) 0.3 10^3/uL (0-0.7); LYMPHOCYTES # (MANUAL) 16.9 10^3/uL (1.5-3.5); LYMPHOCYTES % (MANUAL) 55 %; MONOCYTES # (MANUAL) 0.9 10^3/uL (0.0-1.0); NEUTROPHILS # (MANUAL) 12.6 10^3/uL (1.5-6.6)
[2024-05-03 12:22] LABS: ALBUMIN/GLOBULIN RATIO 1.5 (1.0-2.2); ALKALINE PHOSPHATASE 104 IU/L (42-121); ALT ALANINE AMINOTRANSFERASE 16 IU/L (10-60); AST ASPARTATE AMINOTRANSFERASE 12 IU/L (10-42); BILIRUBIN,TOTAL 0.7 mg/dL (0.2-1.0); BUN - BLOOD UREA NITROGEN 17 mg/dL (6-20); CALCIUM 9.3 mg/dL (8.5-10.3); CARBON DIOXIDE - CO2 29 mmol/L (21-32); CHLORIDE 99 mmol/L (101-111); CHOL/HDL RATIO 5.8 (<4.4); CHOLESTEROL 202 mg/dL; CREATININE 0.7 mg/dL (0.6-1.3); DIFFERENTIAL COMMENT MANUAL DIFFERENTIAL; GFR - MDRD 84 (>89); GLUCOSE 265 mg/dL (74-104); HDL CHOLESTEROL 35 mg/dL; PLATELET ESTIMATE, MANUAL NORMAL (130-450,000) (NORMAL); PLATELET MORPHOLOGY NORMAL APPEARANCE (NORMAL); POTASSIUM 3.8 mmol/L (3.5-4.5); SODIUM 134 mmol/L (135-145); TOTAL PROTEIN 6.7 g/dL (6.4-8.9); TRIGLYCERIDES 763 mg/dL (48-352); WBC MORPHOLOGY (MULTIPLE) 3+ SMUDGE CELLS (NORMAL)
[2024-05-03 12:27] LABS: CREATININE,URINE 99.4 mg/dL; MICROALBUM/CREATININE RATIO,UR 21.1 ug/mg (<30.0); MICROALBUMIN,URINE 2.1 mg/dL
[2024-05-03 12:37] LABS: ESTIMATED AVERAGE GLUCOSE 258 mg/dL (70-100); HEMOGLOBIN A1c% 10.6 % (4.27-6.07)
[2024-05-03 12:53] LABS: SLIDE SENT FOR PATH REVIEW? Indicated
[2024-05-03 12:56] LABS: RBC MORPHOLOGY (MULTIPLE) NORMAL APPEARANCE (NORMAL)
[2024-05-03 13:06] LABS: LDL CHOLESTEROL,DIRECT 54 mg/dL (75-193); LDLD/HDL RATIO 1.5 (<4.4)
== END 2024-05-03 07:18 | disposition home or self-care (01) ==
LOC: LAB.N 07:17
PROVIDERS: ATTEND Internal Medicine
DX: E11.42 Type 2 diabetes mellitus with diabetic polyneuropathy (principal); E78.5 Hyperlipidemia, unspecified; R94.6 Abnormal results of thyroid function studies; C91.10 Chronic lymphocytic leukemia of B-cell type not having achieved remission
CPT/HCPCS: 36415; 80053; 80061; 82043; 82570; 83036; 83721; 84443; 85025

== ENCOUNTER 2024-05-27 11:20 | Outpatient (CLI) | payer OTHER ==
--- NOTE | 2024-05-27 12:47 | SLEEP CARE CONSULTATION ---
Information from patient questionnaire entered by Alexa Mccrary. I have reviewed and concur with the information entered by Alexa Mccrary. This document represents the service I personally performed and the decisions made by me, Umesh Luis MD, [facility]. History of Present Illness Service Date and Time: 05/27/2024 1120 Reason for Visit: New patient Chief Complaint: reports: Unrefreshed sleep, Snoring, Frequent awakenings at night Date of Onset: 40+YRS Usual bedtime: 2300 Time it takes to fall asleep: 2MINS Snores at night: Yes Observed to quit breathing while asleep: Yes Sleeps alone due to snoring: Yes Reasons for waking at night: reports: Snoring, Bathroom Toss, Turn, or Twitch while sleeping: Yes Recalls having dreams: Yes Usually gets out of bed at: 0800 Feels refreshed in the morning: Yes Morning headache: Yes Sleepy or fatigued during the day: No Ever fallen asleep while driving: Yes Takes day naps: Yes Dreams during day naps: No Prior sleep studies: Yes Additional HPI information: I have the pleasure of seeing Ms. Granados today regarding obstructive sleep apnea-hypopnea. As you know, she is a 58-year-old lady who was diagnosed with severe obstructive sleep apnea-hypopnea (AHI was 40.8) here in 2013. She was prescribed a CPAP set at 10 cmH2O which she used for a several years and quit in 2019 because the [employer] broke. A new machine was prescribed in 2018 but her insurance would not cover it. For the past 5 years, she has feeling tired and sleepy. She snores loudly and continues to have witnessed apneas. Now, that she has an insurance that will cover the equipment, she would like to restart the positive airway pressure therapy. 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 Patient is and lives in [employer]. Have you smoked in the past 12 months: No Cigarettes per day (20/pack): 40 Years of smokin Quit date: 1999 Smoking Pack Years: 40.0 Alcohol use: No Caffeine use: Yes Caffeine amount and frequency: 1 TIFFANY A WWEK Family History Family history of sleep disordered breathing: Yes Family Hx Sleep Apnea: Father: Snoring, Sleep apnea - Untreated Allergies and Home Medications Known drug allergies: No Drug allergies reviewed: Yes Home medication list reviewed: Yes Allergy and home medication list: Allergies No Known Drug Allergies Allergy (Verified 05/23/24 10:17) Review of Systems Cardiovascular: reports: high blood pressure Respiratory: denies: shortness of breath, wheeze, sputum production, chronic cough, other Gastrointestinal: denies: heartburn, difficulty swallowing, nausea, vomitting, diarrhea, abdominal pain, other Urinary: reports: incontinence Neurological: denies: headaches, seizure, head trauma, disorientation, speech dysfunction, gait or balance problems, fainting or unconsciousness, other Psychiatric: reports: Attention Deficit Hyperactivity, anxiety, depression Ear/Nose/Throat: reports: wisdom teeth removed Endocrine: denies: thyroid disease, history of goiter, sluggishness, too hot or cold, excessive thirst, increased appetite, increased urination, unexplained weakness, other Musculoskeletal: denies: joint pain, neck pain, back pain, joint swelling, muscle pain or cramping, mobility problems, other Immunologic: reports: allergies to food or environment Physical Exam Vital signs obtained and entered by: ALEXA Nuñez MA Blood Pressure: 139/66 (LEFT ARM) Cuff size: long Heart Rate: 83 O2 Saturation: 95 Height: 5 ft 3 in Weight: 238 lb 9.6 oz Body Mass Index: 42.3 BMI Classification: Morbidly Obese Neck circumference: 18 Mood/affect: normal HEENT: No craniofacial malformation Nostrils: patent to airflow Turbinates: normal Septum: midline Mouth and throat: narrow oropharynx Soft palate: long Hard palate: normal Uvula: normal Uvula visualization: 25% Mallampati Class III Tongue: normal in size Tonsils: small Chin and jaw: normal size and position Neck: normal w/o lymphadenopathy or thyromegaly Heart: regular rate and rhythm Lungs: clear bilaterally Extremities: no edema or clubbing Neurologic: intact Impression and Plan IMPRESSION: 1. Obstructive Sleep Apnea-Hypopnea Syndrome, severe, as previously diagnosed but presently untreated. She appears to be symptoms for loud snore, frequent awakenings, unrefreshed sleep, and excessive daytime sleepiness. Because her diagnostic sleep study was 10 years ago and she has not used a CPAP for 5 years, a new in-laboratory polysomnography will be ordered. Plan: 1. Schedule an in-laboratory polysomnography. 2. Try to lose weight. 3. Return for follow up after the sleep study. Counseling Topics: Weight control Follow up with Sleep Care in: 1-2 months Follow up recommended for: Weight management Visit Type: In Office Time Spent with Patient (minutes): 15 Provider Statement: I spent 100% of the Face to Face Visit with the patient with greater than 50% spent counseling the patient and coordination of care.
[2024-05-27 12:55] VITALS: BP 139/66; O2SAT 95
== END 2024-05-27 11:21 | disposition home or self-care (01) ==
LOC: SC 11:20
PROVIDERS: ATTEND Internal Medicine Pulmonary Disease
DX: G47.33 Obstructive sleep apnea (adult) (pediatric) (principal); E66.01 Morbid (severe) obesity due to excess calories; Z68.41 Body mass index [BMI] 40.0-44.9, adult; Z87.891 Personal history of nicotine dependence
CPT/HCPCS: 99202; 99212

== ENCOUNTER 2024-06-25 19:40 | Outpatient (CLI) | payer OTHER | END 2024-06-25 19:41 | disposition home or self-care (01) | LOC: SC 19:40 | PROVIDERS: ATTEND Internal Medicine Pulmonary Disease | DX: G47.33 Obstructive sleep apnea (adult) (pediatric) (principal); G47.61 Periodic limb movement disorder | CPT/HCPCS: 95810 ==

== ENCOUNTER 2024-07-11 13:49 | Outpatient (CLI) | payer OTHER ==
--- NOTE | 2024-07-11 14:33 | Sleep Patient Instructions ---
Sleep Center Visit Summary - Patient Visit Information Reason for Visit: Sleep study follow-up - Patient Instructions Additional Instructions: You are being started on CPAP therapy with pressure setting at 4-15 cmH2O. You will need to call the sleep care office to set up your follow up once you have your CPAP machine to check compliance and response to therapy at that time. You may call the office with any concerns about pressure feeling too low or too much for adjustment, if needed. You should contact DME supplier for any questions or concerns about mask or equipment. Please call office to schedule a follow up appointment in the sleep care office one month after obtaining new device. - Clinic Information Contact: [facility] [address] [place] [address] [email or web address] T: [phone]
--- NOTE | 2024-07-11 14:37 | SLEEP CARE CONSULTATION ---
Information from patient questionnaire entered by Ynes Kline. I have reviewed and concur with the information entered by Ynes Kline. This document represents the service I personally performed and the decisions made by , Lillian Serna ARNP. History of Present Illness Service Date and Time: 07/11/2024 1349 Initial [place] Sleepiness Scale score: 13 (05/2024) Current [place] Sleepiness Scale score: 3 (07/11/2024) Additional HPI information: SUSIE SAUCEDO returns for follow up and results of the recently performed polysomnography. The sleep study done on 06/25/24 showed severe obstructive sleep apnea with an average AHI of 34.7 and araseli oxygen saturation of 79%. I explained the pathophysiology behind obstructive sleep apnea. We then spent quite a bit of time discussing different treatment options. For mild obstructive sleep apnea, surgery and oral appliance are alternatives to nasal CPAP therapy but in moderate or severe cases, nasal CPAP is the most effective and reliable treatment. I reviewed the impact of weight changes on sleep apnea and strongly recommended losing weight. After some discussion, the patient opted to go with the nasal CPAP therapy. Nasal autoCPAP set at 4-15 cmH20 will be ordered with rationale explained. A manual titration study will be ordered if unable to find optimal pressure with office adjustments. I explained how CPAP machine works and what to expect when using the machine. Using CPAP every night in order to get used to it was emphasized. Patient advised to put CPAP mask on before getting into bed so as not to fall asleep without CPAP. To assist acclimation to CPAP use, it could also be used for a short time during day while reading or watching TV. The patient was instructed to call the CPAP supplier to discuss any mechanical problem that may occur. If the mask given is uncomfortable or is difficult to keep on through the night even with adjustment, contact the CPAP supplier as many will replace with another mask style if notified before 30 days. If snoring or perceives is not getting enough air or too much air from the machine, notify this office. Patient was cautioned about risks of drowsy driving until sleepiness symptoms resolve. Sleep Study - Results Prior sleep studies: Yes Polysomnography/Home Sleep Study results: IMPRESSION: The quality of the study is good. The patient had reduced sleep efficiency due to sleep onset insomnia. The sleep architecture was abnormal for sleep fragmentation and reduced amount of time spent in REM and slow wave sleep (N3). Respiratory monitoring showed severe obstructive sleep apnea-hypopnea (AHI = 34.7) associated with frequent arousals, oxyhemoglobin desaturation and moderate hypoxia (araseli oxygen saturation of 79%). The respiratory events occurred more frequently during supine sleep (supine AHI = 64.4; non-supine = 30.56). Snore was moderate to loud in intensity. There was severe periodic leg movement of sleep, contributing to the sleep fragmentation. Cardiac rhythm was paced at 74 beats per minute. No abnormal behavior (parasomnia) observed during the night. Allergies and Home Medications Known drug allergies: No Drug allergies reviewed: Yes Home medication list reviewed: Yes (no changes) Allergy and home medication list: Allergies No Known Drug Allergies Allergy Review of Systems Review of systems same as previous: Yes (Heart) Physical Exam Vital signs obtained and entered by: Lillian Parisi NP Blood Pressure: 121/78 Cuff size: long (left arm) Heart Rate: 77 O2 Saturation: 95 Height: 5 ft 3 in Weight: 255 lb 6.4 oz Body Mass Index: 45.2 BMI Classification: Morbidly Obese Impression and Plan 1. Obstructive Sleep Apnea-Hypopnea Syndrome, severe, with lowest oxygen saturation of 79%. Obviously this is the cause of the patients symptoms of unrefreshed sleep, and excessive daytime sleepiness. Positive pressure therapy could benefit hypertension, diabetes, insulin resistance, anxiety and attention deficit. As mentioned above, the patient will be started on nasal autoCPAP therapy with pressure set at 4-15 cmH2O. A manual titration study will be completed if unable to find optimal treatment pressure with office adjustments. Compliance guidelines also reviewed. A copy of compliance guidelines will be given for reference at check out. Because the apnea is more severe supine, I instructed to avoid sleeping supine using pillow positioning until able to start CPAP use. Patient would also like to look into the [employer]. She did try CPAP before and was not tolerant of wearing the mask. I will put a referral in for her to explore this option but also continue to set her up with the CPAP. 2. Hypoxemia, moderate, with a araseli oxygen saturation of 79% and 12.4 minutes spent under 90%. The baseline oxygen saturation was normal with an average oxygen saturation of 93%. 3. Periodic limb movement, severe, that did not fragment patients sleep. Periodic limb movement of sleep (PLMS) is characterized by episodes of repetitive limb movements that occur during sleep and usually involve the lower limbs. The etiology is unknown. Patient was advised that no treatment is needed at this time. If symptoms increase, then further evaluation is indicated. 4. Obesity, unspecified. Currently patients BMI is 45.2. Obesity increases the risk of apnea, CPAP pressure requirements and overall health risks especially cardiovascular and diabetes. Thus patient is advised to lose weight. * Nasal auto CPAP therapy, pressure at 4-15 cm H2O. * Referral for [employer] for evaluation and treatment * Attempt to lose weight. * Avoid alcohol consumption near bedtime. * Avoid supine sleep until using CPAP. * The patient is again cautioned about driving until sleepiness completely resolves. * Return one month after CPAP obtained. I will assess response to therapy and compliance at that time. Counseling Topics: Weight loss health impact Prescriptions: Auto CPAP Visit Type: In Office Time Spent with Patient (minutes): 24 Provider Statement: I spent 100% of the Face to Face Visit with the patient with greater than 50% spent counseling the patient and coordination of care.
[2024-07-11 14:48] VITALS: BP 121/78; O2SAT 95
== END 2024-07-11 13:50 | disposition home or self-care (01) ==
LOC: SC 13:49
PROVIDERS: ATTEND Nurse Practitioner Family
DX: G47.33 Obstructive sleep apnea (adult) (pediatric) (principal); R09.02 Hypoxemia; G47.61 Periodic limb movement disorder; E66.01 Morbid (severe) obesity due to excess calories; Z68.42 Body mass index [BMI] 45.0-49.9, adult
CPT/HCPCS: 99212; 99213

== ENCOUNTER 2024-07-29 10:00 | Outpatient (CLI) | payer OTHER ==
[2024-07-29 12:33] LABS: ALBUMIN 4.2 g/dL (3.2-5.5); ALBUMIN/GLOBULIN RATIO 1.8 (1.0-2.2); ALKALINE PHOSPHATASE 125 IU/L (42-121); ALT ALANINE AMINOTRANSFERASE 19 IU/L (10-60); AST ASPARTATE AMINOTRANSFERASE 13 IU/L (10-42); BILIRUBIN,TOTAL 0.6 mg/dL (0.2-1.0); BUN - BLOOD UREA NITROGEN 14 mg/dL (6-20); CALCIUM 9.2 mg/dL (8.5-10.3); CARBON DIOXIDE - CO2 25 mmol/L (21-32); CHLORIDE 100 mmol/L (101-111); CHOL/HDL RATIO 5.2 (<4.4); CHOLESTEROL 188 mg/dL; CREATININE 0.7 mg/dL (0.6-1.3); GFR - MDRD 84 (>89); GLUCOSE 308 mg/dL (74-104); HDL CHOLESTEROL 36 mg/dL; LDL CHOLESTEROL,DIRECT 78 mg/dL (75-193); POTASSIUM 4.3 mmol/L (3.5-4.5); SODIUM 134 mmol/L (135-145); TOTAL PROTEIN 6.6 g/dL (6.4-8.9); TRIGLYCERIDES 445 mg/dL
[2024-07-29 12:34] LABS: CREATININE,URINE 71.6 mg/dL; ESTIMATED AVERAGE GLUCOSE 192 mg/dL (70-100); HEMOGLOBIN A1c% 8.3 % (4.27-6.07); MICROALBUM/CREATININE RATIO,UR 19.6 ug/mg (<30.0); MICROALBUMIN,URINE 1.4 mg/dL
[2024-07-29 12:40] LABS: THYROID STIMULATING HORMONE 4.27 uIU/mL (0.34-5.60)
[2024-07-29 12:55] LABS: LDLD/HDL RATIO 2.2 (<4.4)
== END 2024-07-29 10:15 | disposition home or self-care (01) ==
LOC: LAB.N 10:00
PROVIDERS: ATTEND Internal Medicine
DX: E11.42 Type 2 diabetes mellitus with diabetic polyneuropathy (principal); E78.5 Hyperlipidemia, unspecified; R94.6 Abnormal results of thyroid function studies
CPT/HCPCS: 36415; 80053; 80061; 82043; 82570; 83036; 83721; 84443